=== PATIENT | male | born 1995 | race Caucasian/White ===

== ENCOUNTER 2018-02-24 00:06 | Emergency (ER) | payer OTHER ==
[~2018-02-24] VITALS: Ht 182.9 cm; Wt 95.0 kg
[2018-02-24] MEDS ORDERED: LIDOCAINE 1%-EPI 1:100K, 20ML ONE (00:43)
[2018-02-24] MEDS ORDERED: HYDROcodone/APAP 5/325 TABLET ONE (00:49)
[2018-02-24] MEDS ORDERED: IBUPROFEN 600 MG TABLET ONE (00:50)
[2018-02-24] MEDS ORDERED: HYDROcodone/APAP 5/325 TABLET PO PRN (01:00)
[2018-02-24] MEDS ORDERED: CEFAZOLIN 1,000 MG IM ONE (01:00)
[2018-02-24] MEDS ORDERED: LIDOCAINE 1%-EPI 1:100K, 20ML SQ ONE (01:00)
[2018-02-24] MEDS ORDERED: IBUPROFEN 200 MG TABLET PO ONE (01:00)
[2018-02-24] MEDS ORDERED: CEFAZOLIN 1,000 MG ONE (01:02)
--- NOTE | 2018-02-24 01:14 | NUR ---
DR LEIVA IN THE ROOM TECH IN ROOM CLEANING WOUND VS STABLE. NO ACUTE DISTRESS NOTED. CALL LIGHT IN PLACE. WILL CONTINUE TO MONITOR.
[2018-02-24] MEDS ORDERED: BACITRACIN ZINC OINT 500U/GM, 0.9 GM ONE (01:33)
[2018-02-24 02:07] VITALS: BP 128/74
== END 2018-02-24 02:36 | disposition home or self-care (01) ==
LOC: ED 02:29
DX: S81.011A Laceration without foreign body, right knee, initial encounter (principal); X58.XXXA Exposure to other specified factors, initial encounter; Y93.89 Activity, other specified; Y92.69 Other specified industrial and construction area as the place of occurrence of the external cause; Y99.8 Other external cause status
CPT/HCPCS: 13121; 73564; 99285; J0690; J3490

== ENCOUNTER 2018-03-08 09:55 | Emergency (ER) | payer OTHER ==
[~2018-03-08] VITALS: Ht 185.4 cm; Wt 99.0 kg
[2018-03-08 09:57] VITALS: BP 127/69
[2018-03-08] MEDS ORDERED: BACITRACIN ZINC OINT 500U/GM, 0.9 GM ONE (10:17)
== END 2018-03-08 10:41 | disposition home or self-care (01) ==
LOC: ED 10:25
DX: S81.811D Laceration without foreign body, right lower leg, subsequent encounter (principal); Z48.02 Encounter for removal of sutures; X58.XXXD Exposure to other specified factors, subsequent encounter
CPT/HCPCS: 99281; 99282